=== PATIENT | male | born 1955 | race Caucasian/White ===

== ENCOUNTER 2021-09-23 06:44 | Emergency (ER) | payer MEDICARE ==
[~2021-09-23] VITALS: Ht 182.9 cm; Wt 93.0 kg
[2021-09-23] MEDS ORDERED: METFORMIN HCL500 MG (06:58)
[2021-09-23] MEDS ORDERED: NIFEDIPINE ER60 M1 (06:58)
[2021-09-23] MEDS ORDERED: LIPITOR40 MG PO (06:59)
[2021-09-23] MEDS ORDERED: TRAZODONE HCL50 MG PO (10:43)
== END 2021-09-23 10:50 | disposition home or self-care (01) ==
LOC: ED 06:44
DX: R45.851 Suicidal ideations (principal); F10.129 Alcohol abuse with intoxication, unspecified; Y90.7 Blood alcohol level of 200-239 mg/100 ml; Z20.822 Contact with and (suspected) exposure to COVID-19
CPT/HCPCS: 80053; 81001; 84443; 85025; 99284; C9803; G0480; U0003